=== PATIENT | male | born 1940 | race Asian ===

== ENCOUNTER 2016-08-10 14:17 | Inpatient (IN) | payer OTHER ==
[~2016-08-10] VITALS: Ht 154.9 cm; Wt 75.0 kg
[2016-08-10] MEDS ORDERED: LOVASTATIN40 MG PO ×2 (16:38→16:39)
[2016-08-10 16:47] LABS: BASOPHIL % 0.3 % (0-2); PLATELET COUNT 151 x10^3mcL (130-400)
[2016-08-10 16:57] LABS: CALCIUM 8.4 mg/dL (8.5-10.1); CARBON DIOXIDE 28.3 mmol/L (21-32); CHLORIDE SERUM 99 mmol/L (98-107); CREATININE SERUM 2.7 mg/dL (0.7-1.3); GLUCOSE SERUM 107 mg/dL (74-106); RED CELL DISTRIBUTION WIDTH 14.9 % (11.5-14.5); SODIUM SERUM 135 mmol/L (136-145)
[2016-08-10 17:02] LABS: ALBUMIN 3.7 g/dL (3.4-5.0); ALKALINE PHOSPHATASE 56 U/L (46-116); ALT/SGPT 23 U/L (16-63); AST/SGOT 19 U/L (15-37); BILIRUBIN TOTAL 1.3 mg/dL (0.20-1.00); TOTAL PROTEIN, SERUM 7.7 g/dL (6.4-8.2); URIC ACID 7.4 mg/dL (3.5-7.2)
[2016-08-10 20:13] VITALS: BP 147/71
[2016-08-10 20:14] VITALS: Ht 154.9 cm; Wt 75.0 kg
[2016-08-10 20:19] LABS: T3 TOTAL 0.84 ng/mL
[2016-08-10 20:23] LABS: FREE T4 0.87 ng/dL (0.76-1.46); FREE THYROXINE INDEX 2.2 ug/dL (1.4-4.5); T4(THYROXINE) 6.6 ug/dL (4.7-13.3)
[2016-08-10 20:31] LABS: MAGNESIUM 2.2 mg/dL (1.8-2.4); PHOSPHOROUS 3.1 mg/dL (2.5-4.9)
[2016-08-10 20:32] LABS: CHOLESTEROL/HDL RATIO 2.3
[2016-08-10] MEDS ORDERED: ASPIR 8181 MG PO (21:01)
[2016-08-10 22:47] LABS: microscopic required? YES; urine erythrocyte 2+ (NEGATIVE)
[2016-08-11 05:46] VITALS: BP 108/53
[2016-08-11 06:38] LABS: BILIRUBIN DIRECT 0.29 mg/dL (0.0-0.2); BILIRUBIN TOTAL 1.21 mg/dL (0.20-1.00)
[2016-08-11 10:15] VITALS: BP 140/64
[2016-08-11 14:04] VITALS: BP 111/57
[2016-08-11 18:04] VITALS: BP 133/62
[2016-08-11 20:34] VITALS: BP 121/56
[2016-08-12 05:22] VITALS: BP 113/53
[2016-08-12] MEDS ORDERED: FLO4 PO (09:28)
[2016-08-12] MEDS ORDERED: APAP/HYDROCODON1 T13 PO (09:28)
[2016-08-12] MEDS ORDERED: COL100 PO (09:29)
[2016-08-12] MEDS ORDERED: ZOFRAN ODT4 MG SL (09:29)
[2016-08-12 10:00] VITALS: BP 108/57
[2016-08-12 10:15] VITALS: BP 113/53
[2016-08-12 11:28] LABS: CALCIUM 7.9 mg/dL (8.5-10.1); CARBON DIOXIDE 28.1 mmol/L (21-32); CHLORIDE SERUM 102 mmol/L (98-107); CREATININE SERUM 2.8 mg/dL (0.7-1.3); GLUCOSE SERUM 187 mg/dL (74-106); POTASSIUM SERUM 4.5 mmol/L (3.5-5.1); SODIUM SERUM 134 mmol/L (136-145)
== END 2016-08-12 13:35 | disposition home or self-care (01) | DRG 693 ==
LOC: ED 14:17 → DU 19:20 → MU 08-12 11:06
PROVIDERS: Emergency Medicine; ADMIT Family Medicine
DX: N20.0 Calculus of kidney (principal); N17.0 Acute kidney failure with tubular necrosis; D68.69 Other thrombophilia; E11.65 Type 2 diabetes mellitus with hyperglycemia; E66.9 Obesity, unspecified; E78.5 Hyperlipidemia, unspecified; I25.10 Atherosclerotic heart disease of native coronary artery without angina pectoris; Z87.442 Personal history of urinary calculi; Z79.82 Long term (current) use of aspirin; Z68.31 Body mass index [BMI] 31.0-31.9, adult; Z95.5 Presence of coronary angioplasty implant and graft; I10 Essential (primary) hypertension; Z91.013 Allergy to seafood; Z82.49 Family history of ischemic heart disease and other diseases of the circulatory system; E11.21 Type 2 diabetes mellitus with diabetic nephropathy; E11.51 Type 2 diabetes mellitus with diabetic peripheral angiopathy without gangrene; D64.9 Anemia, unspecified
CPT/HCPCS: 82962; 83880; 84439; J2270; J2405; J7030; Q0092

== ENCOUNTER 2019-10-06 00:32 | Emergency (ER) | payer OTHER ==
[~2019-10-06] VITALS: Ht 157.5 cm; Wt 72.6 kg
[~2019-10-06 00:32] MED LIST: APAP/HYDROCODON1 T13 PO; ASPIR 8181 MG PO; COL100 PO; FLO4 PO; LOVASTATIN40 MG PO; ZOFRAN ODT4 MG SL
[2019-10-06 00:34] VITALS: Ht 157.5 cm; Wt 72.6 kg
[2019-10-06 01:23] LABS: BASOPHIL % 0.8 % (0-2); PLATELET COUNT 208 x10^3mcL (130-400); RED CELL DISTRIBUTION WIDTH 14.2 % (11.5-14.5)
[2019-10-06 01:26] LABS: CALCIUM 9.2 mg/dL (8.5-10.1); CHLORIDE SERUM 101 mmol/L (98-107); CREATININE SERUM 1.8 mg/dL (0.7-1.3); GLUCOSE SERUM 156 mg/dL (74-106); POTASSIUM SERUM 4.5 mmol/L (3.5-5.1); SODIUM SERUM 139 mmol/L (136-145)
[2019-10-06 01:32] LABS: ALBUMIN 3.9 g/dL (3.4-5.0); ALKALINE PHOSPHATASE 75 U/L (46-116); ALT/SGPT 40 U/L (16-63); AST/SGOT 27 U/L (15-37); BILIRUBIN TOTAL 0.5 mg/dL (0.20-1.00); TOTAL PROTEIN, SERUM 8.3 g/dL (6.4-8.2)
[2019-10-06 03:42] VITALS: BP 169/59
== END 2019-10-06 03:42 | disposition home or self-care (01) ==
LOC: ED 00:32
PROVIDERS: Student in an Organized Health Care Education/Training Program
DX: F41.1 Generalized anxiety disorder (principal); M79.81 Nontraumatic hematoma of soft tissue; I10 Essential (primary) hypertension; E11.9 Type 2 diabetes mellitus without complications; Z91.013 Allergy to seafood
CPT/HCPCS: 83880; Q0092